=== PATIENT | female | born 1980 | race Caucasian/White ===

== ENCOUNTER 2018-12-12 10:23 | Emergency (ER) | payer MEDICAID ==
[~2018-12-12] VITALS: Ht 157.5 cm; Wt 71.0 kg
[~2018-12-12 10:23] MED LIST: AMOX1TAB10 PO; CIPR500T4 PO; FLUT9.9S NASAL; PHEN-538 PO; POLY10DR19 RIGHT EYE; PSEU30TA38 PO
[2018-12-12 10:36] VITALS: BP 111/54; PULSE 74; RESP 18; Ht 157.5 cm; Wt 71.0 kg
[2018-12-12] MEDS ORDERED: KETOROLAC 30 MG INJ IM STA (12:27)
[2018-12-12] MEDS ORDERED: IBUP-1542 PO (13:57)
[2018-12-12] MEDS ORDERED: CIPR500T4 PO (13:57)
[2018-12-12] MEDS ORDERED: HYDR-4011 PO (13:57)
--- NOTE | 2018-12-12 14:04 | ERD ---
ER Documentation Chief Complaint Chief Complaint dysuria and bilateral flank pain x 2 days, taking cipro HPI 38-year-old female no significant past medical history presents with dysuria and bilateral flank pain x2 days. She states that she had some Cipro left over from previous treatment it was taking the medication. She states that she has 8 out of 10 pain. The pain is more on the left flank than the right pain. She has been taking Advil 600 mg and tramadol with only mild relief. Denies fevers. Denies nausea or vomiting. No chest pain or shortness of breath noted. No other modifying factors noted, no other treatments tried at home. ROS All systems reviewed and are negative except as per history of present illness. Medications Home Meds Active Scripts Ciprofloxacin Hcl* (Ciprofloxacin Hcl*) 500 Mg Tablet, 500 MG PO BID for UTI for 7 Days, #14 TAB Prov:VICKY CLINTON DO 12/12/18 Ibuprofen* (Motrin*) 600 Mg Tab, 600 MG PO Q6H PRN for PAIN AND OR ELEVATED TEMP, #30 TAB Prov:VICKY CLINTON DO 12/12/18 Hydrocodone/Acetaminophen ([place] 5-325 Tablet) 1 Each Tablet, 1 TAB PO Q6H PRN for PAIN, #10 TAB Prov:VICKY CLINTON DO 12/12/18 Phenazopyridine Hcl* (Pyridium*) 200 Mg Tab, 200 MG PO TID PRN for URINARY PAIN, #6 TAB Prov:DAWNA BLUE NP 03/22/17 Ciprofloxacin Hcl* (Ciprofloxacin Hcl*) 500 Mg Tablet, 500 MG PO BID for 10 Days, TAB Prov:DAWNA BLUE NP 03/22/17 Fluticasone Propionate (Flonase Allergy Relief) 9.9 Ml [place].susp, 1 SPRAY NASAL DAILY, #1 BOTTLE TO EACH NOSTRIL Prov:DIOGO SHUKLA PA-C 07/03/16 Pseudoephedrine Hcl* (Pseudoephedrine Hcl*) 30 Mg Tablet, 30 MG PO Q6 PRN for CONGESTION, #30 TAB Prov:DIOGO SHUKLA PA-C 07/03/16 Amoxicillin/Potassium Clav (Amox-Clav 875-125 mg Tablet) 875-125 mg Tab, 1 TAB PO BID for 7 Days, #14 TAB Prov:DIOGO SHUKLA PA-C 07/03/16 Polymyxin B Sulfate-TMP* (Polymyxin B-TMP Eye Drops*) 10 Ml Drops, 1 DROP RIGHT EYE QID for 7 Days, EA Prov:MICHAELA MCCLENDON PA-C 02/26/16 Allergies Allergies: Coded Allergies: No Known Drug Allergy (Verified Allergy, Mild, 03/21/17) PMhx/Soc History of Surgery: No Anesthesia Reaction: No Hx Neurological Disorder: No Hx Respiratory Disorders: No Hx Cardiac Disorders: No Hx Psychiatric Problems: No Hx Miscellaneous Medical Probl: No Hx Alcohol Use: No Hx Substance Use: No Hx Tobacco Use: Yes Smoking Status: Current every day smoker FmHx Family History: No coronary disease Physical Exam Vitals Vital Signs Date Temp Pulse Resp B/P (MAP) Pulse Ox O2 O2 Flow FiO2 Time Delivery Rate 12/12/18 98.2 74 18 111/54 99 10:36 (73) Physical Exam Const: No acute distress Resp: Clear to auscultation bilaterally Cardio: Regular rate and rhythm, no murmurs, peripheral pulses intact Abd: Soft, non distended. Normal bowel sounds, nontender to palpation no McBurney's point tenderness, no Pantoja sign, no rebound or guarding noted Skin: No petechiae or rashes Back: There is bilateral flank tenderness noted more on the left than the right Ext: No cyanosis, or edema Neur: Awake and alert, bilateral upper and lower extremity sensation intact Psych: Normal Mood and Affect Result Diagram: 12/12/18 1236 12/12/18 1236 Results 24 hrs Laboratory Tests Test 12/12/18 12:36 12/12/18 12:38 White Blood Count 10.3 10^3/ul Red Blood Count 4.41 10^6/ul Hemoglobin 13.2 g/dl Hematocrit 38.9 % Mean Corpuscular Volume 88.2 fl Mean Corpuscular Hemoglobin 29.9 pg Mean Corpuscular Hemoglobin Concent 33.9 g/dl Red Cell Distribution Width 12.9 % Platelet Count 326 10^3/UL Mean Platelet Volume 10.3 fl Immature Granulocytes % 0.200 % Neutrophils % 66.3 % Lymphocytes % 24.1 % Monocytes % 6.1 % Eosinophils % 2.5 % Basophils % 0.8 % Nucleated Red Blood Cells % 0.0 /100WBC Immature Granulocytes # 0.020 10^3/ul Neutrophils # 6.8 10^3/ul Lymphocytes # 2.5 10^3/ul Monocytes # 0.6 10^3/ul Eosinophils # 0.3 10^3/ul Basophils # 0.1 10^3/ul Nucleated Red Blood Cells # 0.0 10^3/ul Urine Color NICKY Urine Clarity CLEAR Urine pH 5.0 Urine Specific [place] 1.021 Urine Ketones NEGATIVE mg/dL Urine Nitrite POSITIVE mg/dL Urine Bilirubin NEGATIVE mg/dL Urine Urobilinogen 2+ mg/dL Urine Leukocyte Esterase NEGATIVE [place]/ul Urine Microscopic RBC 6 /HPF Urine Microscopic WBC 6 /HPF Urine Squamous Epithelial Cells FEW /HPF Urine Bacteria FEW /HPF Urine Mucus FEW /HPF Urine Hemoglobin 1+ mg/dL Urine Glucose NEGATIVE mg/dL Urine Total Protein NEGATIVE mg/dl Sodium Level 141 mmol/L Potassium Level 4.0 mmol/L Chloride Level 110 mmol/L Carbon Dioxide Level 23 mmol/L Anion Gap 8 Blood Urea Nitrogen 12 mg/dl Creatinine 0.82 mg/dl Est Glomerular Filtrat Rate mL/min > 60 mL/min Glucose Level 87 mg/dl Calcium Level 8.7 mg/dl Total Bilirubin 0.4 mg/dl Direct Bilirubin 0.00 mg/dl Indirect Bilirubin 0.4 mg/dl Aspartate Amino Transf (AST/SGOT) 46 IU/L Alanine Aminotransferase (ALT/SGPT) 46 IU/L Alkaline Phosphatase 73 IU/L Total Protein 7.6 g/dl Albumin 4.1 g/dl Globulin 3.50 g/dl Albumin/Globulin Ratio 1.17 Lipase 151 U/L POC Beta HCG, Qualitative NEGATIVE Current Medications Medications Dose Sig/Lisa Start Time Status Last (Trade) Ordered Route PRN Stop Time Admin Dose Reason Admin Ketorolac 30 mg ONCE STAT 12/12/18 DC 12/12/18 Tromethamine IM 12:27 12:42 (Toradol) 12/12/18 12:29 Procedures/MDM Medical Decision Making: Differential diagnosis includes but not limited to acute gastritis, acute gastroenteritis, appendicitis, cholecystitis, pancreatitis, nephrolithiasis, acute pyelonephritis Patient appeared well on physical exam. Nontoxic appearing. ED course: Patient was given Toradol. Symptoms improved with treatment. Labs: CBC showed no severe anemia, no elevated WBC to suggest infection CMP showed no electrolyte abnormalities, there was normal kidney and liver function Lipase was normal Urine was negative UA consistent with infection Imaging: X-ray Abdomen 1V Interpreted by me: Free Air: None Bowel Gas: Nonspecific Soft Tissue: Normal Renal ultrasound showed no evidence of renal stone, there is no evidence of hydronephrosis. Given urinary tract infection with flank pain, there is possible that patient may have an acute pyelonephritis. Discussed with patient that given the relatively low level of RBCs in her urine, there is a low chance that she may have kidney stones. Discussed with patient that the only way to rule out a kidney stone is to do a CT abdomen and pelvis. Discussed with patient that she may also have the option of monitoring her symptoms and return to the ER for a CT scan in 12 to 24 hours if the pain persist. Patient states that she would rather wait on the CT scan Prescription(s): Patient given prescription for supportive medications, Cipro, [place] short course low-dose. Patient advised to follow up with PCP in 1-2 days. Patient advised to return to ED for new or worsening symptoms. Patient stable on discharge from the ED. The patient has been prescribed [place] during this encounter. The patient has been warned about the use of narcotics. The patient should not drive or operate heavy machinery while taking this medication. The patient was also warned about the addictive properties of narcotic medications. Narcan prescription was NOT provided given the following criteria 1. No more than 5 tablets of [place] 10 mg or 10 tablets of [place] 5 mg were prescribed. 2. Concomitant opiate and benzodiazepine prescriptions were not provided. 3. There is no obvious evidence of prior history of opiate abuse or overdose. Disclaimer: Inadvertent spelling and grammatical errors are likely due to EHR/dictation software use and do not reflect on the overall quality of patient care. Also, please note that the electronic time recorded on this note does not necessarily reflect the actual time of the patient encounter. Departure Diagnosis: Primary Impression: Complicated UTI (urinary tract infection) Condition: Fair Patient Instructions: Understanding Urinary Tract Infections (UTIs) Referrals: [facility] YOU HAVE RECEIVED A MEDICAL SCREENING EXAM AND THE RESULTS INDICATE THAT YOU DO NOT HAVE A CONDITION THAT REQUIRES URGENT TREATMENT IN THE EMERGENCY DEPARTMENT. FURTHER EVALUATION AND TREATMENT OF YOUR CONDITION CAN WAIT UNTIL YOU ARE SEEN IN YOUR DOCTORS OFFICE WITHIN THE NEXT 1-2 DAYS. IT IS YOUR RESPONSIBILITY TO MAKE AN APPOINTMENT FOR FOLOW-UP CARE. IF YOU HAVE A PRIMARY DOCTOR --you should call your primary doctor and schedule an appointment IF YOU DO NOT HAVE A PRIMARY DOCTOR YOU CAN CALL OUR PHYSICIAN REFERRAL HOTLINE AT IF YOU CAN NOT AFFORD TO SEE A PHYSICIAN YOU CAN CHOSE FROM THE FOLLOWING [facility] [address] [facility] [address] [facility] [facility] [address] [facility] [address] [facility]. [facility] [address] [facility] [facility]. [address] Additional Instructions: Call your primary care doctor TOMORROW for an appointment during the next 1-2 days.See the doctor sooner or return here if your condition worsens before your appointment time. VICKY CLINTON DO December 12, 2018 14:04
== END 2018-12-12 14:21 | disposition home or self-care (01) ==
LOC: FTE 10:23
DX: N39.0 Urinary tract infection, site not specified (principal); F17.210 Nicotine dependence, cigarettes, uncomplicated
CPT/HCPCS: 74018; 76775; 80053; 81001; 81025; 83690; 85025; 96372; J1885; Z7502